=== PATIENT | female | born 1985 | race Caucasian/White ===

== ENCOUNTER 2018-09-24 13:57 | Emergency (ER) | payer MEDICAID ==
[~2018-09-24] VITALS: Ht 160 cm; Wt 67.4 kg
[~2018-09-24 13:57] MED LIST: PREN1TAB49 PO
[2018-09-24 13:59] VITALS: BP 107/64; PULSE 80; RESP 16; Ht 160 cm; Wt 67.4 kg
--- NOTE | 2018-09-24 14:50 | ERD ---
ER Documentation Chief Complaint Chief Complaint VAG BLEED X 3 DAYS , 7 WEEKS PREG , LMP 08/01/18 HPI 33-year-old G4, P3 and her seventh week female presents complaint of vaginal spotting for past 3 days. States that she is gone through 3 pads today. Also states is been having some mild abdominal cramping. States she had dysuria since yesterday. Denies any flank pain, back pain, vomiting, hematuria, diarrhea, fevers, lightheadedness, palpitations, chest pain, shortness of breath. ROS All systems reviewed and are negative except as per history of present illness. Medications Home Meds Active Scripts Hydrocodone/Acetaminophen ([place] 5-325 Tablet) 1 Each Tablet, 1-2 TAB PO Q6H PRN for PAIN, #10 TAB Prov:PRISCILLAZACPHYLLISALEJANDROSANDRA 09/24/18 Cephalexin* (Keflex*) 500 Mg Capsule, 500 MG PO BID for UTI for 14 Days, CAP Prov:SANDRA CAVAZOS 09/24/18 Reported Medications Vits W-Ca,Fe,Fa(<1MG) () 1 Tab Tablet, 1 TAB PO 03/03/11 Allergies Allergies: Coded Allergies: No Known Allergies (Verified Allergy, Unknown, 09/05/17) PMhx/Soc Medical and Surgical Hx: pt denies Medical Hx, pt denies Surgical Hx Hx Alcohol Use: No Hx Substance Use: No Hx Tobacco Use: No Smoking Status: Never smoker FmHx Family History: No diabetes, No coronary disease, No other Physical Exam Vitals Vital Signs Date Temp Pulse Resp B/P (MAP) Pulse Ox O2 O2 Flow FiO2 Time Delivery Rate 09/24/18 98.1 80 16 107/64 99 13:59 (78) Physical Exam Const: No acute distress Head: Atraumatic Eyes: Normal Conjunctiva ENT: Normal External Ears, Nose and Mouth. Neck: Full range of motion. No meningismus. Resp: Clear to auscultation bilaterally Cardio: Regular rate and rhythm, no murmurs Abd: Soft, non tender, non distended. Normal bowel sounds Skin: No petechiae or rashes Back: No midline or flank tenderness Ext: No cyanosis, or edema Neur: Awake and alert Psych: Normal Mood and Affect Pelvic Exam: Cv Tech present Abdomen: Nontender External Genitalia: Normal Skin Speculum: Normal vaginal mucosa, some blood noted around the cervix with no pooling. No POC's noted. os was closed. Result Diagram: 09/24/18 1449 Results 24 hrs Laboratory Tests Test 09/24/18 14:49 09/24/18 14:56 White Blood Count 9.7 10^3/ul Red Blood Count 4.67 10^6/ul Hemoglobin 13.4 g/dl Hematocrit 40.9 % Mean Corpuscular Volume 87.6 fl Mean Corpuscular Hemoglobin 28.7 pg Mean Corpuscular Hemoglobin Concent 32.8 g/dl Red Cell Distribution Width 12.8 % Platelet Count 244 10^3/UL Mean Platelet Volume 10.7 fl Immature Granulocytes % 0.200 % Neutrophils % 74.2 % Lymphocytes % 16.0 % Monocytes % 7.9 % Eosinophils % 1.2 % Basophils % 0.5 % Nucleated Red Blood Cells % 0.0 /100WBC Immature Granulocytes # 0.020 10^3/ul Neutrophils # 7.2 10^3/ul Lymphocytes # 1.6 10^3/ul Monocytes # 0.8 10^3/ul Eosinophils # 0.1 10^3/ul Basophils # 0.1 10^3/ul Nucleated Red Blood Cells # 0.0 10^3/ul Beta HCG, Quantitative 9597.6 mIU/ml Urine Color YELLOW Urine Clarity SLIGHTLY CLOUDY Urine pH 5.0 Urine Specific [place] 1.030 Urine Ketones NEGATIVE mg/dL Urine Nitrite NEGATIVE mg/dL Urine Bilirubin NEGATIVE mg/dL Urine Urobilinogen NEGATIVE mg/dL Urine Leukocyte Esterase 1+ Gianluca/ul Urine Microscopic RBC 2 /HPF Urine Microscopic WBC 9 /HPF Urine Squamous Epithelial Cells MODERATE /HPF Urine Bacteria FEW /HPF Urine Mucus MODERATE /HPF Urine Hemoglobin 3+ mg/dL Urine Glucose NEGATIVE mg/dL Urine Total Protein NEGATIVE mg/dl Current Medications Medications Dose Sig/Riccardo Start Time Status Last (Trade) Ordered Route PRN Stop Time Admin Dose Reason Admin Ceftriaxone 1 gm ONCE ONCE 09/24/18 DC 09/24/18 Sodium IM 16:30 09/24/18 16:30 (Rocephin) 16:31 Lidocaine 5 ml ONCE ONCE 09/24/18 DC 09/24/18 (Xylocaine INJ 16:30 09/24/18 16:31 1% (Mpf)) 16:31 Procedures/MDM DIAGNOSTIC IMAGING REPORT Patient: LADARIUS KIM : 1985 Age: 33 Sex: F MR #: [id number] DOS: 09/24/18 1424 Ordering MD: SANDRA CAVAZOS Location: [facility] Room/Bed: PROCEDURE: US OB. CLINICAL INDICATION: Vaginal spotting TECHNIQUE: Transabdominal and transvaginal views of the pelvis were obtained. COMPARISON: No prior studies are available for comparison. FINDINGS: There is a single intrauterine gestation with a CRL measuring 0.5 cm and the gestational sac measures 1.8 cm, corresponding to a gestational age of 6 weeks and 3 days. The heart tones are not present. There is a complex hypoechoic fluid collection adjacent to the gestational sac, measuring 3.8 x 1.6 x 1.6 cm, consistent with subchorionic hemorrhage. The right ovary measures 3.5 x 2.3 x 2.3 cm. The left ovary measures 5.1 x 3.9 x 3.9 cm. There is a 3.6 cm complex cystic and echogenic structure in the left ovary, suspicious for a dermoid. There is Doppler flow in the ovaries. The cervix measures 2.6 cm. There is a trace amount of fluid within the cervix. There is no free fluid. RPTAT: AA IMPRESSION: Single intrauterine with an estimated gestational age of 6 weeks and 3 days, based on ultrasound measurements. HEART TONES ARE ABSENT, SUSPICIOUS FOR DEMISE. 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 Focal area of subchorionic hemorrhage. Close follow-up is recommended. .Bonifacio Pleitez MD, MD Date Time Electronically viewed and signed by .Bonifacio Pleitez MD, MD on 09/24/2018 16:00 .S/ CC: SANDRA CAVAZOS [phone] MDM: Ultrasound showed possible demise as well as a 3.6 cm dermoid left ovary. Given patient's complaint of abdominal cramps, heterotopic state cannot be ruled out. Therefore, patient was advised to return in 48 hours for repeat ultrasound and blood work. UA was positive for UTI. At this point I have low suspicion for ruptured ectopic based on results of US, hemodynamic stability, physical exam and patient history. I have low suspicion for septic , pyelonephritis, placenta abrupta, appendicitis, cholecystitis, bowel o bstruction, ovarian torsion, symptomatic anema, PID, surgical abdomen, hemorrhage, or other life threatening conditions based on patient history, physical exam, and lab/imaging results. At time of discharge patient was hemodynamically stable. Patient discharged with strict ER precautions. Patient advised to follow up with PMD and hairspring adjuster. All questions answered at discharge. Departure Diagnosis: Primary Impression: demise Additional Impressions: Vaginal bleeding in patient at less than 20 weeks gestation UTI (urinary tract infection) Urinary tract infection type: acute cystitis Hematuria presence: without hematuria Qualified Codes: N30.00 - Acute cystitis without hematuria Condition: Stable SANDRA CAVAZOS Sep 24, 2018 14:50
[2018-09-24] MEDS ORDERED: CEPH-443 PO (16:18)
[2018-09-24] MEDS ORDERED: CEFTRIAXONE 1 GM INJ IM ONE (16:30)
[2018-09-24] MEDS ORDERED: LIDOCAINE 1% (MPF) 5 ML VIAL INJ ONE (16:30)
[2018-09-24] MEDS ORDERED: HYDR-4011 PO (17:20)
== END 2018-09-24 17:24 | disposition home or self-care (01) ==
LOC: FTE 13:57
DX: O02.1 Missed abortion (principal); O23.11 Infections of bladder in pregnancy, first trimester
CPT/HCPCS: 76801; 76817; 81001; 84702; 85025; 86900; 86901; 96372; J0696; Z7502; Z7610

== ENCOUNTER 2018-09-26 10:22 | Emergency (ER) | payer MEDICAID ==
[~2018-09-26] VITALS: Ht 165.1 cm; Wt 67.0 kg
[~2018-09-26 10:22] MED LIST changes: +CEPH-443 PO; +HYDR-4011 PO
[2018-09-26 10:29] VITALS: BP 110/69; PULSE 73; RESP 18; Ht 165.1 cm; Wt 67.0 kg
--- NOTE | 2018-09-26 14:34 | ERD ---
ER Documentation Chief Complaint Chief Complaint repeat ultrasound for heart rate seen here 2 days ago HPI 33-year-old female presenting with vaginal bleeding. Patient had bleeding for the last 2 days with passing of clots over the last 4 days. Patient had ultrasound 2 days ago which showed no signs of heart tones indicative of a failed . G4, . LMP August 21. Patient is being seen at all of you for OB care. Denies any significant abdominal pain but just mild cramping. Denies other medical problems. NKDA. Surgical history denies. Social history denies ROS All systems reviewed and are negative except as per history of present illness. Medications Home Meds Active Scripts Hydrocodone/Acetaminophen ([place] 5-325 Tablet) 1 Each Tablet, 1-2 TAB PO Q6H PRN for PAIN, #10 TAB Prov:SANDRA CAVAZOS 09/24/18 Cephalexin* (Keflex*) 500 Mg Capsule, 500 MG PO BID for UTI for 14 Days, CAP Prov:PRISCILLAZACSANDRA FERGUSON 09/24/18 Reported Medications Vits W-Ca,Fe,Fa(<1MG) () 1 Tab Tablet, 1 TAB PO 03/03/11 Allergies Allergies: Coded Allergies: No Known Allergies (Verified Allergy, Unknown, 09/05/17) PMhx/Soc Medical and Surgical Hx: pt denies Medical Hx, pt denies Surgical Hx Hx Alcohol Use: No Hx Substance Use: No Hx Tobacco Use: No Smoking Status: Never smoker FmHx Family History: No diabetes, No coronary disease, No other Physical Exam Vitals Vital Signs Date Temp Pulse Resp B/P (MAP) Pulse Ox O2 O2 Flow FiO2 Time Delivery Rate 09/26/18 98.0 73 18 110/69 97 10:29 (83) Physical Exam GENERAL: The patient is well-appearing, well-nourished, in no acute distress HEENT: Atraumatic. Conjunctivae are pink. Pupils equal, round, and reactive to light. There is no scleral icterus. Tympanic membranes clear bilaterally. Or opharynx clear. NECK: C-spine is soft and supple. There is no meningismus. There is no cervical lymphadenopathy. CHEST: Clear to auscultation bilaterally. There are no rales, wheezes or rhonchi. HEART: Regular rate and rhythm. No murmurs, clicks, rubs or gallops. ABDOMEN:Soft, nontender and nondistended. Good bowel sounds. No rebound or guarding. No gross peritonitis. No gross organomegaly or masses. Result Diagram: 09/26/18 1134 Results 24 hrs Laboratory Tests Test 09/26/18 11:34 09/26/18 11:35 White Blood Count 5.6 10^3/ul Red Blood Count 4.57 10^6/ul Hemoglobin 13.0 g/dl Hematocrit 40.1 % Mean Corpuscular Volume 87.7 fl Mean Corpuscular Hemoglobin 28.4 pg Mean Corpuscular Hemoglobin Concent 32.4 g/dl Red Cell Distribution Width 13.0 % Platelet Count 225 10^3/UL Mean Platelet Volume 10.7 fl Immature Granulocytes % 0.200 % Neutrophils % 65.0 % Lymphocytes % 23.2 % Monocytes % 9.5 % Eosinophils % 1.4 % Basophils % 0.7 % Nucleated Red Blood Cells % 0.0 /100WBC Immature Granulocytes # 0.010 10^3/ul Neutrophils # 3.6 10^3/ul Lymphocytes # 1.3 10^3/ul Monocytes # 0.5 10^3/ul Eosinophils # 0.1 10^3/ul Basophils # 0.0 10^3/ul Nucleated Red Blood Cells # 0.0 10^3/ul Urine Color YELLOW Urine Clarity SLIGHTLY CLOUDY Urine pH 5.0 Urine Specific [place] 1.026 Urine Ketones NEGATIVE mg/dL Urine Nitrite NEGATIVE mg/dL Urine Bilirubin NEGATIVE mg/dL Urine Urobilinogen NEGATIVE mg/dL Urine Leukocyte Esterase NEGATIVE Gianluca/ul Urine Microscopic RBC > 182 /HPF Urine Microscopic WBC 2 /HPF Urine Squamous Epithelial Cells FEW /HPF Urine Bacteria FEW /HPF Urine Mucus MODERATE /HPF Urine Hemoglobin 3+ mg/dL Urine Glucose NEGATIVE mg/dL Urine Total Protein NEGATIVE mg/dl Beta HCG, Quantitative 2661.1 mIU/ml Procedures/MDM DIAGNOSTIC IMAGING REPORT Patient: LADARIUS KIM : 1985 Age: 33 Sex: F MR #: [id number] DOS: 09/26/18 1117 Ordering MD: DG ROSADO PA-C Location: [facility] Room/Bed: PROCEDURE: US Pelvis Complete CLINICAL INDICATION: Vaginal Bleed () TECHNIQUE: Multiple sonographic images of the pelvis were obtained utilizing transabdominal technique. The images were reviewed on a PACS workstation. COMPARISON: US PELVIS 09/24/2018 FINDINGS: Anteverted uterus has homogeneous echotexture. Endometrial echo complex is normal. The right ovary has a normal echotexture with internal vascularity. The left ovary has a normal echotexture with internal vascularity. No adnexal masses are noted. There is no evidence for free fluid. Bladder is unremarkable. Measurements (cm): Endometrium: 0.92 cm Uterus: 9.22 cm x 4.98 cm x 6.60 cm Right Ovary: 2.78 cm x 1.88 cm x 1.99 cm Left Ovary: 4.13 cm x 3.78 cm x 3.33 cm IMPRESSION: No evidence of intrauterine gestation compatible with interval . Decreased size of left ovary cyst likely resolving corpus luteum. Ectopic not entirely excluded. Short-term follow-up ultrasound with serial beta HCG recommended. MDM: 33-year-old female presenting with findings consistent with demise and incomplete miscarriage. I have low suspicion for ectopic . IUP was noted on the ultrasound 2 days ago which is no longer there and beta quant levels have decreased. Patient is hemodynamically stable. I have low suspicion for urinary tract infection. I have low suspicion for acute abdominal emergency or pelvic emergency. Patient is discharged with strict ER precautions and told to follow-up with primary care within 1 to 2 days for close evaluation. All questions answered at discharge Departure Diagnosis: Primary Impression: Incomplete Condition: Stable Patient Instructions: Miscarriage (Incomplete) Referrals: [place] [id number] [facility] [address] [place], [place] [phone] OFFICE FAX QAMAR INETO [address] [place], [place] [phone] [place] [address] [place], [place] [phone] [place] [address] [facility], [address] [address] [address] [address] [place], [place] [phone] [facility] [address] [place], [place] [id number] [address] [id number] - PA[place] [address], [facility] [address] [address] [place], [place] [address] [facility]. [address], [facility] [address] [address] [place], [place] [address] [place], [place] [phone] Additional Instructions: FOLLOW UP WITH YOUR PRIMARY CARE PHYSICIAN TOMORROW.Return to this facility if you are not improving as expected. ANDREW ROSADO PA-C Sep 26, 2018 14:34
== END 2018-09-26 13:59 | disposition home or self-care (01) ==
LOC: FTE 10:22
DX: O03.4 Incomplete spontaneous abortion without complication (principal)
CPT/HCPCS: 36415; 76801; 81001; 84702; 85025; Z7502